=== PATIENT | female | born 1980 | race Caucasian/White ===

== ENCOUNTER 2016-09-07 21:59 | Emergency (ER) | payer MEDICARE, MEDICAID ==
[~2016-09-07] VITALS: Ht 157.5 cm; Wt 97.7 kg
[~2016-09-07 21:59] MED LIST: FLUT9.9S EA NOSTRIL; IBUP200C2 PO; [UNRECOGNIZED DRUG - OTHER] PO
--- OUTSIDE RECORDS SUMMARY | 2016-09-07 22:03 | XMS REPORT | Referral Summary ---
Author Author [facility], [facility] Organization [facility] Address Unknown Phone Unavailable Care Team Providers Care Hall Supervisor Name Role Phone Reza Gamino Primary Care Physician [phone] Encounter VC Date(s): 02/28/16 - 02/28/16 [facility] [address] [place] [id number] Discharge Disposition: 01-Home or Self Care Attending Physician: Honorio Amaya APRN Admitting Physician: Honorio Amaya APRN Vital Signs Most recent to 1 oldest [Reference Range]: Temperature Tympanic 36.4 degC [36.6-38.1 degC] *LOW* (02/28/16 8:53 AM) Peripheral Pulse 74 bpm Rate [60-100 bpm] (02/28/16 8:53 AM) Blood Pressure 106/64 mmHg [90-140/60-90 mmHg] (02/28/16 8:53 AM) SpO2 98 % (02/28/16 8:53 AM) Problem List Condition Effective Dates Status Health Status Informant Bipolar(Confirmed) Active Chicken Active pox(Confirmed) Depression(Confirmed Active ) Menopausal Active symptoms(Confirmed) Methamphetamine 07/2006 Active use(Confirmed)1 Migraines(Confirmed) Active Overweight(Confirmed Active ) Personality Active disorder(Confirmed)2 Plantar Active fascitis(Confirmed) Post traumatic Active stress disorder(Confirmed) Substance drug Active abuse(Confirmed) Tension Active headaches(Confirmed) 1In remission 2Followed by [facility] at [facility] Allergies, Adverse Reactions, Alerts Substance Reaction Severity Status minocycline vague chest tightness, uncertain Mild Active sulfamethoxazole RASH Active Medications cyclobenzaprine 10 mg oral tablet 10 mg 1 tabs, Oral, Bedtime (once a day), # 15 tabs, 0 Refill(s), Pharmacy: [id number], 1 tabs Oral Bedtime (once a day) Start Date: 02/28/16 Stop Date: 03/13/16 Status: Ordered meloxicam 15 mg oral tablet 15 mg 1 tabs, Oral, Daily, # 15 tabs, 0 Refill(s), Pharmacy: [id number], 1 tabs Oral Daily Start Date: 02/28/16 Status: Ordered Results No data available for this section Immunizations Vaccine Date Refusal Reason influenza virus vaccine, live 02/07/12 measles/mumps/rubella virus vaccine 09/07/05 tetanus-diphth toxoids (Td) adult/adol 06/10/04 Procedures Procedure Date Related Diagnosis Body Site Laproscopic BSO, adhesiolysis1 08/2008 Hysterectomy 11/14/07 Tub[address] 1Dr. Brant Social History Social History Type Response Smoking Status Current every day smoker; Type: Cigarettes; Tobacco use per day: Less than Pack Assessment and Plan No data available for this section
[2016-09-07 22:07] VITALS: Ht 157.5 cm; Wt 97.7 kg
--- NOTE | 2016-09-07 22:22 | NUR ---
IMAGING PT TO IMAGING AT THIS TIME.
--- NOTE | 2016-09-07 22:22 | ERPDOC ---
Departure Disposition Decision Date: September 07, 2016 Disposition Decision Time: 22:38 Disposition: 01 DISCHARGED HOME, SELF-CARE Impression Impression Impression: Primary Impression: Viral illness Severity: Moderate Condition: Stable Seen By: Mid-level only Referrals: JB THAPA MD (Family) Patient Instructions: Viral Syndrome (ED) Problems/Meds/Labs Reviewed?: Yes Medications reviewed and manag: Yes Additional Instructions: Continue to take Tylenol and/or Ibuprofen as needed for fever or body aches at home. Make sure that you are drinking plenty of fluids at home. If you are not improving over the next 24-48 hours then please follow up with your primary care provider or return to Er for reevaluation. Follow up care ordered?: Yes Mental Status: Alert HPI - Cough/URI General Chief Complaint: Cough,Fever,Flu,URI Stated Complaint: FEVER,TROUBLE BREATHING,BODY ACHES,JAMA Time Seen by Provider: 22:04 Source: patient Exam Limitations: no limitations HPI - Cough/URI Initial Comments She started having a fever yesterday up to 103 at home. Has taken Advil for this today about 3 hours ago but her temp is still 102. She denies any nausea/ vomiting or diarrhea. Has had a feeling like her throat is swelling but has not really been sore at all. 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 Denies any urinary symptoms. Has had a slight cough and feels like it is hard to catch her breath at times. She does smoke about 1 cigarette per day. No history of asthma. Occurred At: home Onset/Timing: Gradual Duration: 12-24 hrs Prior Episodes/Possible Cause: no prior episodes Associated Symptoms: cough, fever/chills (up to 103), muscle aches, shortness of breath, sore throat, DENIES: chest pain/soreness, dizziness, earache, facial pain, headache, lightheadedness, nasal congestion, nasal drainage, sinus infection, wheezing Hx of Similar Symptoms: No Allergies: Coded Allergies: Sulfa (Sulfonamide Antibiotics) (Verified Allergy, Intermediate, Rash, 07/07) cedarwood (Verified Allergy, Unknown, 07/07/16) Past History Past Medical History Musculoskeletal: back pain Psychological: anxiety, depression, drug abuse Surgical History General: exploratory laparotomy Reproductive/: hysterectomy, tubal ligation Family History Family PMH: FOUND: other Vaccines Hx Influenza Vaccination: No Hx Pneumococcal Vaccination: No Social History Smoking Status: Current every day smoker Does patient use chewing tobac: No # of Years: 20 Second Hand Exposure: No Substance Use Type: methamphetamine Alcohol Intake: none Housing: house Review of Systems Constitutional Constitutional: chills, fatigue, fever, weakness, DENIES: dizziness Eyes Vision: DENIES: blurring, double vision ENMT Ears: DENIES: drainage, pain Sinuses: DENIES: congestion, rhinorrhea Mouth/Throat: sore throat, DENIES: drooling, painful swallowing, scratchy throat Cardiovascular Cardiac: DENIES: chest pain, orthopnea Rhythm/Rate: DENIES: irregular beat, palpitations Pulmonary Respiratory: cough, dyspnea, DENIES: sputum GI Upper Abdomen: DENIES: nausea, pain, vomiting Lower Abdomen: DENIES: constipation, diarrhea, pain Integumentary Skin: DENIES: rash Neurological General: DENIES: headache, numbness, tingling, weakness Physical Exam General General Nourishment: well nourished, well developed, appears stated age, no acute distress, adult, obese General Body Habitus: well groomed Vitals and Pain Weight: Kilograms: Height (feet): 5 Height (inches): 2.00 Triage Pain Scale: RN VS reviewed by Provider: Yes Normal Exams: Neck: Full range of motion, without adenopathy, JVD, bruits or thyromegaly Chest/Resp: Clear all neal, with good airflow, and symmetry bilaterally CV: Regular rate and rhythm, without murmur or gallop, Pulses 2+ all extremities, capillary refill, <2 seconds all ext., no pedal edema noted Abdomen: Bowel sounds positive, soft, non-tender, non-distended, no hepatosplenomegaly, masses or bruits noted Lymphatic: No lymphadenopathy, or lymphedema noted Integumentary: No rashes, hives, or bruising noted Neurologic: Patient is alert, and oriented Psychiatric: Patient exhibits, appropriate attention, emotion and affect Respiratory (brief) Respiratory: FOUND: other (Noted O2 sats are 96% on RA) Differential Diagnoses Differential Diagnoses Considering: Asthma Exacerbation, Influenza, Pharyngitis, Pneumonia, Strep, Viral Syndrome Progress Results/Orders Orders Procedure Category Date Status Time Chest, Pa & Lateral RAD 09/07/16 Taken Acetaminophen PHA 09/07/16 Complete (Tylenol Extra 22:30 Medications Current ED Medications Acetaminophen (Tylenol Extra Strength) 1,000 mg O ONCE PO Last administered on 09/07/16t 22:39; Start 09/07/16 at 22:30; Stop 09/07/16 at 22:31; Status DC Progress Progress Xray does not show any focal pneumonia. I am going to go ahead and send her home with viral illness instructions. Continue with the OTC medications as needed. If not improving overall in the next 24-48 hours then will have her follow up with her PCP. Push fluids at home. Xray Xray : Reason for Exam: fever, cough Xray: CXR PA/Lat Interpretation: Normal [facility] September 07, 2016 22:22
--- NOTE | 2016-09-07 22:28 | NUR ---
IMAGING PT RETURN FROM IMAGING AT THIS TIME.
[2016-09-07] MEDS ORDERED: ACETAMINOPHEN 500 MG TABLET PO ONE (22:30)
[2016-09-07 22:56] VITALS: BP 98/56; PULSE 127; RESP 20; TEMP 102.7; O2SAT 94
--- NOTE | 2016-09-07 22:56 | NUR ---
DEPART PT GIVEN DI FOR VIRAL SYNDROME AND F/U. PT VERBALIZES UNDERSTANDING OF DI. QUESTIONS ASKED/ANSWERED - DENIES FURTHER QUESTIONS/NEEDS AT THIS TIME. TEMP 102.7 - PROVIDER NOTIFIED. PERSONAL BELONGINGS GATHERED. PT AMBULATED/ESCORTED TO ED EXIT - GAIT STABLE, NO SIGN OF RESPIRATORY DISTRESS AT THIS TIME.
--- NOTE | 2016-09-09 09:36 | DI ---
INDICATION: ITS.REASON: cough, fever PROCEDURE: CHEST 2-VIEWS UPRIGHT (PA \T\ LAT) Encounter: Initial COMPARISON: None FINDINGS: The lungs are clear without evidence of focal abnormal airspace opacity. There is no pleural effusion or pneumothorax. The heart size, mediastinal contours and pulmonary vascularity are within normal limits. There is no significant skeletal abnormality. IMPRESSION: No acute cardiopulmonary disease. .
== END 2016-09-07 22:56 | disposition home or self-care (01) ==
LOC: ED 21:59
DX: B34.9 Viral infection, unspecified (principal)
CPT/HCPCS: 71020; 99283; A9270